=== PATIENT | female | born 1960 | race Caucasian/White ===

== ENCOUNTER 2017-05-30 18:35 | Inpatient (IN) | payer MEDICAID, OTHER ==
[~2017-05-30] VITALS: Ht 167.6 cm; Wt 98.5 kg
[2017-05-30] MEDS ORDERED: SODIUM CHLORIDE 0.9% 1,000 ML IV ONE (18:38)
[2017-05-30] MEDS ORDERED: SODIUM CHLORIDE 0.9% 1,000ML IVBOLUS ONE (19:00)
[2017-05-30] MEDS ORDERED: PLEASE ENTER ALLERGIES MC SCH (19:00)
[2017-05-30] MEDS ORDERED: SODIUM CHLORIDE FLUSH 10ML SYR IVF ONE (19:00)
[2017-05-30] MEDS ORDERED: PLEASE ENTER HEIGHT AND WEIGHT MC SCH (19:00)
[2017-05-30] MEDS ORDERED: INSULIN REGULAR 100 UNITS/ML, 3ML VIAL ONE (19:51)
[2017-05-30 19:52] LABS: AMPHETAMINE SCREEN, URINE Negative (Negative); BARBITURATE SCREEN, URINE Negative (Negative); BENZODIAZEPINE SCREEN, URINE Negative (Negative); CANNABINOID SCREEN, URINE Negative (Negative); COCAINE SCREEN, URINE Negative (Negative); METHADONE SCREEN, URINE Negative (Negative); OPIATE SCREEN, URINE Negative (Negative)
[2017-05-30 19:55] LABS: MICROSCOPIC INDICATED
[2017-05-30] MEDS ORDERED: INSULIN REGULAR 100 UNITS/ML, 3ML VIAL IV ONE (20:00)
[2017-05-30 20:19] LABS: CULTURE INDICATED? NO
[2017-05-30] MEDS ORDERED: ATOR20TA PO (20:25)
[2017-05-30] MEDS ORDERED: ALEN70TA5 PO (20:25)
[2017-05-30] MEDS ORDERED: CHOL500045 PO (20:25)
[2017-05-30] MEDS ORDERED: POTA20TA89 PO (20:25)
[2017-05-30] MEDS ORDERED: LORazepam 2 MG/ML, 1ML ONE (21:28)
[2017-05-30] MEDS ORDERED: LORazepam 2 MG/ML, 1ML IVPush ONE (21:30)
[2017-05-30 21:31] LABS: ALBUMIN 3.3 g/dL (3.4-5.0); ANION GAP 29 mmol/L (5-15); CALCIUM 8.3 mg/dL (8.5-10.1); CHLORIDE 109 mmol/L (98-107)
[2017-05-30 21:35] LABS: MEAN CORPUSCULAR HEMOGLOBIN 31.3 pg (27.0-34.8); MEAN CORPUSCULAR HGB CONC 33.2 g/dL (32.4-35.8); MEAN CORPUSCULAR VOLUME 94.4 fL (80-100); MEAN PLATELET VOLUME 10.4 fL (7.4-10.4); PLATELET COUNT 211 x10^3/uL (130-400); RED BLOOD COUNT 4.63 x10^6/uL (3.82-5.3); RED CELL DISTRIBUTION WIDTH 13.3 % (9.6-15.2)
[2017-05-30 21:39] LABS: ALANINE AMINOTRANSFERASE 17 U/L (12-78); ALKALINE PHOSPHATASE 160 U/L (45-117); BILIRUBIN,TOTAL 0.7 mg/dL (0.2-1.0); CREATININE 1.34 mg/dL (0.55-1.02)
[2017-05-30 21:40] LABS: TOTAL PROTEIN 6.8 g/dL (6.4-8.2); TROPONIN I 0.017 ng/mL (0.000-0.045)
[2017-05-30 21:41] LABS: INTERNATIONAL NORMALIZED RATIO 1.13 (0.93-1.1); PROTHROMBIN TIME 11.6 Seconds (9.6-11.5)
[2017-05-30 21:44] LABS: SALICYLATE LEVEL 4.3 mg/dL (2.8-20.0); T4 (THYROXINE) 9.3 mcg/dL (4.8-13.9)
[2017-05-30 21:52] LABS: BASOPHILS # (AUTO) 0.05 x10^3/uL (0-0.1); BASOPHILS % (AUTO) 0 % (0-1); EOSINOPHILS # (AUTO) 0.01 x10^3/uL (0-0.4); EOSINOPHILS % (AUTO) 0 % (1-7); LYMPHOCYTES # (AUTO) 2.66 x10^3/uL (1-3.4); LYMPHOCYTES % (AUTO) 11 % (22-44); MD SCAN; MONOCYTES # (AUTO) 2.08 x10^3/uL (0.2-0.8); MONOCYTES % (AUTO) 9 % (2-9); NEUTROPHILS % (AUTO) 80 % (42-75)
[2017-05-30 21:53] LABS: ACETAMINOPHEN < 2 mcg/mL (10-30); CREATINE KINASE, TOTAL 117 U/L (26-192); THYROID STIMULATING HORMONE 0.159 mIU/L (0.358-3.740)
[2017-05-30] MEDS ORDERED: SODIUM CHLORIDE FLUSH 10ML SYR IVF PRN (22:00)
[2017-05-30 22:04] LABS: ACETONE, SERUM Large (80mg/dL) mg/dL (Negative)
[2017-05-30] MEDS ORDERED: D5%-0.45% NACL 1,000 ML IV PRN (22:45)
[2017-05-30] MEDS ORDERED: DOCUSATE 100 MG CAPSULE PO PRN (23:00)
[2017-05-30] MEDS ORDERED: ACETAMINOPHEN 325 MG TABLET PO PRN (23:00)
[2017-05-30] MEDS ORDERED: hydrALAzine 20 MG/ML, 1ML IVPush PRN (23:00)
[2017-05-30] MEDS ORDERED: BISACODYL 10 MG SUPP PR PRN (23:00)
[2017-05-30] MEDS ORDERED: POLYETHYLENE GLYCOL 17 GM PACKET PO PRN (23:00)
[2017-05-30] MEDS ORDERED: ENALAPRILAT 1.25 MG/ML, 2ML IVPush PRN (23:00)
[2017-05-30] MEDS ORDERED: morphine SULFATE 10 MG/ML, 1ML IVPush PRN (23:00)
[2017-05-30 23:29] LABS: ANION GAP 20 mmol/L (5-15); CALCIUM 6.8 mg/dL (8.5-10.1); CHLORIDE 120 mmol/L (98-107); CREATININE 0.97 mg/dL (0.55-1.02)
[2017-05-30 23:40] LABS: FREE T4 (FREE THYROXINE) 1.17 ng/dL (0.76-1.46); THYROID STIMULATING HORMONE 0.127 mIU/L (0.358-3.740)
[2017-05-30 23:55] LABS: HEMOGLOBIN A1C 12.9 % (4.2-6.3)
[2017-05-31] MEDS: SODIUM CHLORIDE 0.9% 1,000 ML IV SCH ×2 (00:29→05:05)
[2017-05-31] MEDS ORDERED: POTASSIUM CHLORIDE 40 MEQ in SODIUM CHLORIDE 0.9% 100 ML IV ONE ×3 (00:30→09:00)
[2017-05-31] MEDS: REGULAR INSULIN 62.5 UNITS in SODIUM CHLORIDE 0.9% 249.375 ML IV PRN ×2 (00:30→18:04)
[2017-05-31] MEDS ORDERED: MAGNESIUM SULFATE PMX 2GM/50ML 50 ML IV ONE (00:30)
[2017-05-31] MEDS ORDERED: CEFTRIAXONE PMX 1GM/50ML 50 ML IV ONE (00:30)
[2017-05-31] MEDS: HEPARIN 5,000 UNITS/ML, 1ML SQ SCH ×4 (00:40→22:37)
[2017-05-31 04:14] LABS: BASOPHILS # (AUTO) 0.05 x10^3/uL (0-0.1); BASOPHILS % (AUTO) 0 % (0-1); EOSINOPHILS # (AUTO) 0.02 x10^3/uL (0-0.4); EOSINOPHILS % (AUTO) 0 % (1-7); LYMPHOCYTES # (AUTO) 2.48 x10^3/uL (1-3.4); LYMPHOCYTES % (AUTO) 17 % (22-44); MD NO; MEAN CORPUSCULAR HEMOGLOBIN 31.6 pg (27.0-34.8); MEAN CORPUSCULAR VOLUME 92.9 fL (80-100); MEAN PLATELET VOLUME 9.5 fL (7.4-10.4); MONOCYTES # (AUTO) 0.42 x10^3/uL (0.2-0.8); MONOCYTES % (AUTO) 3 % (2-9); NEUTROPHILS # (AUTO) 11.62 x10^3/uL (1.8-6.8); NEUTROPHILS % (AUTO) 80 % (42-75); PLATELET COUNT 137 x10^3/uL (130-400); RED BLOOD COUNT 4.36 x10^6/uL (3.82-5.3); RED CELL DISTRIBUTION WIDTH 12.9 % (9.6-15.2)
[2017-05-31 04:25] LABS: ALANINE AMINOTRANSFERASE 15 U/L (12-78); ALBUMIN 2.7 g/dL (3.4-5.0); ANION GAP 17 mmol/L (5-15); CHLORIDE 124 mmol/L (98-107); CREATININE 1.04 mg/dL (0.55-1.02)
[2017-05-31 04:28] LABS: ALKALINE PHOSPHATASE 140 U/L (45-117); BILIRUBIN,TOTAL 0.6 mg/dL (0.2-1.0); CHOL/HDL RATIO 2.1; CHOLESTEROL, TOTAL 70 mg/dL (140-239); HDL CHOL % 49 % (28-40); HDL CHOLESTEROL (DIRECT) 34 mg/dL (40-60); TOTAL PROTEIN 5.7 g/dL (6.4-8.2); TRIGLYCERIDES 159 mg/dL (50-200); VLDL CHOLESTEROL 32 mg/dL (0-25)
[2017-05-31 04:29] LABS: LDL CHOLESTEROL,CALCULATED < 5 mg/dL (54-169); LDL/HDL RATIO 0.1 (0.5-3.0)
[2017-05-31 04:30] VITALS: BP 125/65
[2017-05-31] MEDS ORDERED: POTASSIUM CHLORIDE 40 MEQ in SODIUM CHLORIDE 0.9% 500 ML IV ONE (07:00)
[2017-05-31] MEDS: CHOLECALCIFEROL 1,000 UNIT TABLET PO SCH (09:00)
[2017-05-31] MEDS: FAMOTIDINE 20 MG/2 ML IVPush SCH ×2 (09:36→22:37)
[2017-05-31 13:16] LABS: ANION GAP 13 mmol/L (5-15); CALCIUM 7.6 mg/dL (8.5-10.1); CHLORIDE 124 mmol/L (98-107)
[2017-05-31 13:18] LABS: CREATININE 1.12 mg/dL (0.55-1.02)
[2017-05-31] MEDS ORDERED: POTASSIUM CHLORIDE 20 MEQ TAB.ER.PRT ONE (13:53)
[2017-05-31] MEDS ORDERED: POTASSIUM CHLORIDE 20 MEQ TAB.ER.PRT PO SCH (14:00)
[2017-05-31 16:20] LABS: CALCIUM 7.7 mg/dL (8.5-10.1); CREATININE 1.08 mg/dL (0.55-1.02)
[2017-05-31 16:27] LABS: ANION GAP 15 mmol/L (5-15); CHLORIDE 123 mmol/L (98-107)
[2017-05-31] MEDS ORDERED: POTASSIUM CHLORIDE 20 MEQ TAB.ER.PRT PO ONE ×2 (18:00→22:00)
[2017-05-31] MEDS ORDERED: POTASSIUM CHLORIDE IV ONE (18:30)
[2017-05-31] MEDS ORDERED: NACL IV ONE (18:30)
[2017-05-31] MEDS ORDERED: D5 IV ONE (18:30)
[2017-05-31 20:54] LABS: ANION GAP 11 mmol/L (5-15); CALCIUM 7.9 mg/dL (8.5-10.1); CHLORIDE 124 mmol/L (98-107); CREATININE 1.12 mg/dL (0.55-1.02)
[2017-05-31] MEDS: ATORVASTATIN 20 MG TABLET PO SCH (22:37)
[2017-05-31] MEDS ORDERED: D5%-0.45% NACL 1,000 ML IV PRN (22:45)
[2017-06-01 00:41] LABS: ANION GAP 11 mmol/L (5-15); CALCIUM 7.7 mg/dL (8.5-10.1); CHLORIDE 126 mmol/L (98-107); CREATININE 1.01 mg/dL (0.55-1.02)
[2017-06-01] MEDS ORDERED: D5%-0.45% NACL 1,000 ML IV SCH (02:30)
[2017-06-01 04:00] VITALS: BP 118/51
[2017-06-01 04:37] LABS: MEAN CORPUSCULAR HEMOGLOBIN 30.8 pg (27.0-34.8); MEAN CORPUSCULAR HGB CONC 33.4 g/dL (32.4-35.8); MEAN CORPUSCULAR VOLUME 92.1 fL (80-100); RED CELL DISTRIBUTION WIDTH 13.4 % (9.6-15.2)
[2017-06-01 04:48] LABS: ALANINE AMINOTRANSFERASE 16 U/L (12-78); ALBUMIN 2.3 g/dL (3.4-5.0); ANION GAP 9 mmol/L (5-15); CALCIUM 7.5 mg/dL (8.5-10.1); CHLORIDE 126 mmol/L (98-107); CREATININE 0.99 mg/dL (0.55-1.02)
[2017-06-01 04:50] LABS: ALKALINE PHOSPHATASE 132 U/L (45-117); BILIRUBIN,TOTAL 0.5 mg/dL (0.2-1.0)
[2017-06-01 05:23] LABS: BASOPHILS # (AUTO) 0.02 x10^3/uL (0-0.1); BASOPHILS % (AUTO) 0 % (0-1); EOSINOPHILS # (AUTO) 0.03 x10^3/uL (0-0.4); EOSINOPHILS % (AUTO) 1 % (1-7); LYMPHOCYTES # (AUTO) 1.46 x10^3/uL (1-3.4); LYMPHOCYTES % (AUTO) 24 % (22-44); MD SCAN; MEAN PLATELET VOLUME 9.6 fL (7.4-10.4); MONOCYTES % (AUTO) 8 % (2-9); NEUTROPHILS # (AUTO) 3.97 x10^3/uL (1.8-6.8); NEUTROPHILS % (AUTO) 67 % (42-75); PLATELET COUNT 87 x10^3/uL (130-400)
[2017-06-01] MEDS ORDERED: POTASSIUM PHOSPHATE 88 MEQ in SODIUM CHLORIDE 0.9% 1,000 ML IV ONE (07:30)
[2017-06-01] MEDS: HEPARIN 5,000 UNITS/ML, 1ML SQ SCH ×3 (07:39→23:46)
[2017-06-01] MEDS: CHOLECALCIFEROL 1,000 UNIT TABLET PO SCH (07:59)
[2017-06-01] MEDS: FAMOTIDINE 20 MG/2 ML IVPush SCH ×2 (07:59→21:00)
[2017-06-01 08:29] LABS: ANION GAP 9 mmol/L (5-15); CALCIUM 7.8 mg/dL (8.5-10.1); CHLORIDE 126 mmol/L (98-107); CREATININE 0.98 mg/dL (0.55-1.02)
[2017-06-01] MEDS ORDERED: SODIUM BICARBONATE 8.4% 100 MEQ in DEXTROSE 5% 1,000 ML IV SCH (09:00)
[2017-06-01 12:45] LABS: CALCIUM 7.2 mg/dL (8.5-10.1); CHLORIDE 123 mmol/L (98-107)
[2017-06-01 12:49] LABS: ANION GAP 12 mmol/L (5-15); CREATININE 0.85 mg/dL (0.55-1.02)
[2017-06-01] MEDS: SODIUM BICARBONATE 8.4% 150 MEQ in DEXTROSE 5% 1,000 ML IV SCH ×2 (13:42→21:56)
[2017-06-01 13:48] LABS: HIT RESULT NEGATIVE (NEGATIVE)
[2017-06-01] MEDS ORDERED: POTASSIUM CHLORIDE 20 MEQ TAB.ER.PRT PO ONE (14:00)
[2017-06-01] MEDS: REGULAR INSULIN 62.5 UNITS in SODIUM CHLORIDE 0.9% 249.375 ML IV PRN (16:06)
[2017-06-01 17:56] LABS: ANION GAP 11 mmol/L (5-15); CALCIUM 6.8 mg/dL (8.5-10.1); CHLORIDE 121 mmol/L (98-107); CREATININE 0.77 mg/dL (0.55-1.02)
[2017-06-01] MEDS: ATORVASTATIN 20 MG TABLET PO SCH (21:00)
[2017-06-01 21:18] LABS: ANION GAP 10 mmol/L (5-15); CALCIUM 6.9 mg/dL (8.5-10.1); CHLORIDE 120 mmol/L (98-107); CREATININE 0.79 mg/dL (0.55-1.02)
[2017-06-02 02:41] LABS: ANION GAP 10 mmol/L (5-15); CALCIUM 6.6 mg/dL (8.5-10.1); CHLORIDE 118 mmol/L (98-107); CREATININE 0.75 mg/dL (0.55-1.02)
[2017-06-02 04:00] VITALS: BP 108/59
[2017-06-02] MEDS ORDERED: POTASSIUM CHLORIDE 40 MEQ in SODIUM CHLORIDE 0.9% 100 ML IV ONE (04:00)
[2017-06-02] MEDS: SODIUM BICARBONATE 8.4% 150 MEQ in DEXTROSE 5% 1,000 ML IV SCH (06:02)
[2017-06-02 06:14] LABS: CHLORIDE 113 mmol/L (98-107); MEAN CORPUSCULAR HEMOGLOBIN 31.9 pg (27.0-34.8); MEAN CORPUSCULAR HGB CONC 34.7 g/dL (32.4-35.8); MEAN CORPUSCULAR VOLUME 91.7 fL (80-100); MEAN PLATELET VOLUME 10.2 fL (7.4-10.4); PLATELET COUNT 81 x10^3/uL (130-400); RED BLOOD COUNT 3.64 x10^6/uL (3.82-5.3); RED CELL DISTRIBUTION WIDTH 13.2 % (9.6-15.2)
[2017-06-02 06:24] LABS: ALANINE AMINOTRANSFERASE 15 U/L (12-78); ALBUMIN 2.2 g/dL (3.4-5.0); ALKALINE PHOSPHATASE 125 U/L (45-117); ANION GAP 9 mmol/L (5-15); BILIRUBIN,TOTAL 0.7 mg/dL (0.2-1.0); CALCIUM 6.4 mg/dL (8.5-10.1); CREATININE 0.81 mg/dL (0.55-1.02); TOTAL PROTEIN 4.7 g/dL (6.4-8.2)
[2017-06-02] MEDS ORDERED: POTASSIUM PHOSPHATE 44 MEQ in SODIUM CHLORIDE 0.9% 500 ML IV ONE (06:30)
[2017-06-02 07:09] LABS: BASOPHILS # (AUTO) 0.02 x10^3/uL (0-0.1); BASOPHILS % (AUTO) 1 % (0-1); EOSINOPHILS # (AUTO) 0.06 x10^3/uL (0-0.4); EOSINOPHILS % (AUTO) 1 % (1-7); LYMPHOCYTES # (AUTO) 2.21 x10^3/uL (1-3.4); LYMPHOCYTES % (AUTO) 47 % (22-44); MD SCAN; MONOCYTES # (AUTO) 0.34 x10^3/uL (0.2-0.8); MONOCYTES % (AUTO) 7 % (2-9); NEUTROPHILS # (AUTO) 2.06 x10^3/uL (1.8-6.8); NEUTROPHILS % (AUTO) 44 % (42-75)
[2017-06-02] MEDS ORDERED: D5%-0.45NACL+KCL 40MEQ 1,000 ML IV SCH (08:00)
[2017-06-02] MEDS ORDERED: MAGNESIUM SULFATE PMX 2GM/50ML 50 ML IV ONE (08:00)
[2017-06-02] MEDS: CHOLECALCIFEROL 1,000 UNIT TABLET PO SCH (09:00)
[2017-06-02] MEDS: HEPARIN 5,000 UNITS/ML, 1ML SQ SCH ×3 (09:32→22:57)
[2017-06-02] MEDS: FAMOTIDINE 20 MG/2 ML IVPush SCH (09:32)
[2017-06-02] MEDS: ONDANSETRON 2MG/ML, 2ML IVPush PRN ×2 (10:11→17:04)
[2017-06-02 11:26] LABS: ANION GAP 9 mmol/L (5-15); CALCIUM 6.7 mg/dL (8.5-10.1); CHLORIDE 114 mmol/L (98-107); CREATININE 0.81 mg/dL (0.55-1.02)
[2017-06-02] MEDS ORDERED: NYSTATIN CRM 15GM TP SCH (11:30)
[2017-06-02] MEDS ORDERED: POTASSIUM CHLORIDE 20 MEQ TAB.ER.PRT PO ONE (11:30)
[2017-06-02 14:27] LABS: ANION GAP 9 mmol/L (5-15); CALCIUM 6.5 mg/dL (8.5-10.1); CHLORIDE 115 mmol/L (98-107); CREATININE 0.79 mg/dL (0.55-1.02)
[2017-06-02] MEDS: POTASSIUM CHLORIDE 20 MEQ in SODIUM CHLORIDE 0.45% 1,000 ML IV SCH (15:44)
[2017-06-02] MEDS: INSULIN LISPRO 100 UNITS/ML, PEN SQ-INSULIN SCH ×2 (16:21→21:24)
[2017-06-02] MEDS: OXYcodone IR 5MG TABLET PO PRN (16:57)
[2017-06-02 19:18] VITALS: BP 105/69
[2017-06-02] MEDS: ATORVASTATIN 20 MG TABLET PO SCH (21:24)
[2017-06-02] MEDS: INSULIN GLARGINE 100 UNITS/ML, PEN SQ-INSULIN SCH (21:39)
[2017-06-02] MEDS ORDERED: REGULAR INSULIN 62.5 UNITS in SODIUM CHLORIDE 0.9% 249.375 ML IV PRN (22:45)
[2017-06-03] MEDS: POTASSIUM CHLORIDE 20 MEQ in SODIUM CHLORIDE 0.45% 1,000 ML IV SCH ×3 (01:09→21:18)
[2017-06-03 02:55] VITALS: BP 98/62
[2017-06-03] MEDS: ONDANSETRON 2MG/ML, 2ML IVPush PRN ×2 (03:46→21:07)
[2017-06-03 04:45] LABS: ANION GAP 8 mmol/L (5-15); CALCIUM 6.3 mg/dL (8.5-10.1); CHLORIDE 113 mmol/L (98-107)
[2017-06-03 06:59] VITALS: BP 124/83
[2017-06-03] MEDS: HEPARIN 5,000 UNITS/ML, 1ML SQ SCH ×3 (07:55→22:47)
[2017-06-03] MEDS: CHOLECALCIFEROL 1,000 UNIT TABLET PO SCH (07:56)
[2017-06-03] MEDS: INSULIN LISPRO 100 UNITS/ML, PEN SQ-INSULIN SCH ×4 (08:07→21:08)
[2017-06-03] MEDS: INSULIN GLARGINE 100 UNITS/ML, PEN SQ-INSULIN SCH ×2 (08:07→21:08)
[2017-06-03] MEDS ORDERED: SODIUM PHOSPHATE 20 MMOL in SODIUM CHLORIDE 0.9% 500 ML IV ONE (08:30)
[2017-06-03 12:59] VITALS: BP 127/84
[2017-06-03 20:01] VITALS: BP 99/65
[2017-06-03] MEDS: ATORVASTATIN 20 MG TABLET PO SCH (21:07)
[2017-06-03] MEDS: OXYcodone IR 5MG TABLET PO PRN (21:07)
[2017-06-04] MEDS: OXYcodone IR 5MG TABLET PO PRN (02:42)
[2017-06-04 03:53] VITALS: BP 99/65
[2017-06-04 04:17] LABS: MEAN CORPUSCULAR HEMOGLOBIN 31.6 pg (27.0-34.8); MEAN CORPUSCULAR HGB CONC 34.1 g/dL (32.4-35.8); MEAN CORPUSCULAR VOLUME 92.5 fL (80-100); PLATELET COUNT 95 x10^3/uL (130-400); RED BLOOD COUNT 3.71 x10^6/uL (3.82-5.3); RED CELL DISTRIBUTION WIDTH 13.8 % (9.6-15.2)
[2017-06-04 04:28] LABS: ANION GAP 6 mmol/L (5-15); CHLORIDE 113 mmol/L (98-107); CREATININE 0.72 mg/dL (0.55-1.02)
[2017-06-04 05:41] LABS: BASOPHILS # (AUTO) 0.03 x10^3/uL (0-0.1); BASOPHILS % (AUTO) 1 % (0-1); EOSINOPHILS # (AUTO) 0.09 x10^3/uL (0-0.4); EOSINOPHILS % (AUTO) 2 % (1-7); LYMPHOCYTES # (AUTO) 2.56 x10^3/uL (1-3.4); LYMPHOCYTES % (AUTO) 47 % (22-44); MD SCAN; MONOCYTES # (AUTO) 0.54 x10^3/uL (0.2-0.8); MONOCYTES % (AUTO) 10 % (2-9); NEUTROPHILS # (AUTO) 2.18 x10^3/uL (1.8-6.8); NEUTROPHILS % (AUTO) 40 % (42-75)
[2017-06-04] MEDS: POTASSIUM CHLORIDE 20 MEQ in SODIUM CHLORIDE 0.45% 1,000 ML IV SCH ×2 (06:13→17:43)
[2017-06-04 07:30] VITALS: BP 118/68
[2017-06-04] MEDS: INSULIN LISPRO 100 UNITS/ML, PEN SQ-INSULIN SCH ×4 (07:31→20:14)
[2017-06-04] MEDS: HEPARIN 5,000 UNITS/ML, 1ML SQ SCH ×3 (07:32→22:32)
[2017-06-04] MEDS: INSULIN GLARGINE 100 UNITS/ML, PEN SQ-INSULIN SCH ×2 (09:47→20:19)
[2017-06-04] MEDS: CALCIUM CARBONATE 500 MG TAB.CHEW PO SCH ×2 (09:48→20:10)
[2017-06-04] MEDS: CHOLECALCIFEROL 1,000 UNIT TABLET PO SCH (09:48)
[2017-06-04 14:05] VITALS: BP 116/76
[2017-06-04] MEDS: ONDANSETRON 2MG/ML, 2ML IVPush PRN ×2 (15:37→22:32)
[2017-06-04 19:52] VITALS: BP 116/78
[2017-06-04] MEDS: ATORVASTATIN 20 MG TABLET PO SCH (20:10)
[2017-06-04] MEDS ORDERED: DIPHENHYDRAMINE 25 MG CAPSULE PO ONE (23:00)
[2017-06-05 01:28] VITALS: BP 105/70
[2017-06-05] MEDS: POTASSIUM CHLORIDE 20 MEQ in SODIUM CHLORIDE 0.45% 1,000 ML IV SCH ×2 (03:00→18:09)
[2017-06-05] MEDS: INSULIN LISPRO 100 UNITS/ML, PEN SQ-INSULIN SCH ×4 (07:36→20:42)
[2017-06-05 07:57] VITALS: BP 148/77
[2017-06-05] MEDS: CALCIUM CARBONATE 500 MG TAB.CHEW PO SCH ×2 (09:47→20:42)
[2017-06-05] MEDS: CHOLECALCIFEROL 1,000 UNIT TABLET PO SCH (09:59)
[2017-06-05] MEDS: HEPARIN 5,000 UNITS/ML, 1ML SQ SCH ×2 (10:00→18:09)
[2017-06-05] MEDS: INSULIN GLARGINE 100 UNITS/ML, PEN SQ-INSULIN SCH ×2 (10:00→21:00)
[2017-06-05 15:15] VITALS: BP 144/84
[2017-06-05] MEDS: METOCLOPRAMIDE 10MG TABLET PO SCH ×2 (16:32→20:42)
[2017-06-05] MEDS: ATORVASTATIN 20 MG TABLET PO SCH (20:42)
[2017-06-05 21:02] VITALS: BP 132/76
[2017-06-06 01:51] VITALS: BP 132/84
[2017-06-06] MEDS: HEPARIN 5,000 UNITS/ML, 1ML SQ SCH ×3 (02:27→17:11)
[2017-06-06] MEDS: POTASSIUM CHLORIDE 20 MEQ in SODIUM CHLORIDE 0.45% 1,000 ML IV SCH ×2 (03:37→15:04)
[2017-06-06 05:14] LABS: ANION GAP 7 mmol/L (5-15); CALCIUM 7.9 mg/dL (8.5-10.1); CHLORIDE 109 mmol/L (98-107); CREATININE 0.76 mg/dL (0.55-1.02)
[2017-06-06] MEDS: METOCLOPRAMIDE 10MG TABLET PO SCH ×4 (06:42→21:01)
[2017-06-06] MEDS: INSULIN LISPRO 100 UNITS/ML, PEN SQ-INSULIN SCH ×4 (07:10→21:00)
[2017-06-06 07:56] VITALS: BP 116/78
[2017-06-06] MEDS: CALCIUM CARBONATE 500 MG TAB.CHEW PO SCH ×2 (08:50→21:00)
[2017-06-06] MEDS: INSULIN GLARGINE 100 UNITS/ML, PEN SQ-INSULIN SCH ×2 (08:57→21:01)
[2017-06-06] MEDS: CHOLECALCIFEROL 1,000 UNIT TABLET PO SCH (08:57)
[2017-06-06 13:36] VITALS: BP 130/76
[2017-06-06 19:49] VITALS: BP 123/79
[2017-06-06] MEDS: ATORVASTATIN 20 MG TABLET PO SCH (21:00)
[2017-06-06] MEDS: OXYcodone IR 5MG TABLET PO PRN (23:33)
[2017-06-07] MEDS: POTASSIUM CHLORIDE 20 MEQ in SODIUM CHLORIDE 0.45% 1,000 ML IV SCH (01:00)
[2017-06-07 01:02] VITALS: BP 121/71
[2017-06-07] MEDS: HEPARIN 5,000 UNITS/ML, 1ML SQ SCH ×2 (02:28→09:33)
[2017-06-07 03:18] LABS: BASOPHILS # (AUTO) 0.02 x10^3/uL (0-0.1); BASOPHILS % (AUTO) 0 % (0-1); EOSINOPHILS # (AUTO) 0.14 x10^3/uL (0-0.4); EOSINOPHILS % (AUTO) 2 % (1-7); LYMPHOCYTES # (AUTO) 3.29 x10^3/uL (1-3.4); LYMPHOCYTES % (AUTO) 43 % (22-44); MD NO; MEAN CORPUSCULAR HEMOGLOBIN 31.7 pg (27.0-34.8); MEAN CORPUSCULAR HGB CONC 33.6 g/dL (32.4-35.8); MEAN CORPUSCULAR VOLUME 94.3 fL (80-100); MEAN PLATELET VOLUME 9.3 fL (7.4-10.4); MONOCYTES # (AUTO) 0.75 x10^3/uL (0.2-0.8); MONOCYTES % (AUTO) 10 % (2-9); NEUTROPHILS # (AUTO) 3.53 x10^3/uL (1.8-6.8); NEUTROPHILS % (AUTO) 46 % (42-75); PLATELET COUNT 168 x10^3/uL (130-400); RED BLOOD COUNT 3.99 x10^6/uL (3.82-5.3); RED CELL DISTRIBUTION WIDTH 13.9 % (9.6-15.2)
[2017-06-07 03:35] LABS: ALANINE AMINOTRANSFERASE 19 U/L (12-78); ALBUMIN 2.4 g/dL (3.4-5.0); ALKALINE PHOSPHATASE 171 U/L (45-117); BILIRUBIN,TOTAL 0.6 mg/dL (0.2-1.0); CREATININE 0.88 mg/dL (0.55-1.02); TOTAL PROTEIN 5.4 g/dL (6.4-8.2)
[2017-06-07 03:38] LABS: ANION GAP 10 mmol/L (5-15); CHLORIDE 108 mmol/L (98-107)
[2017-06-07] MEDS: METOCLOPRAMIDE 10MG TABLET PO SCH ×3 (06:30→16:29)
[2017-06-07] MEDS: INSULIN LISPRO 100 UNITS/ML, PEN SQ-INSULIN SCH ×3 (07:00→16:00)
[2017-06-07 07:06] VITALS: BP 129/64
[2017-06-07] MEDS: CHOLECALCIFEROL 1,000 UNIT TABLET PO SCH (09:00)
[2017-06-07] MEDS: CALCIUM CARBONATE 500 MG TAB.CHEW PO SCH (09:32)
[2017-06-07] MEDS: INSULIN GLARGINE 100 UNITS/ML, PEN SQ-INSULIN SCH (09:34)
[2017-06-07 12:23] VITALS: BP 131/69
[2017-06-07] MEDS ORDERED: POTASSIUM CHLORIDE 20 MEQ TAB.ER.PRT PO ONE (13:00)
[2017-06-07] MEDS ORDERED: METO10TA2 PO (13:08)
[2017-06-07] MEDS ORDERED: INSU100I13 SQ-INSULIN (13:08)
== END 2017-06-07 18:15 | disposition home health service (06) | DRG 637 ==
LOC: ED 19:46 → EDIP 21:53 → CCU 23:38 → 3NW 06-02 17:00
PROVIDERS: ADMIT Internal Medicine; ATTEND Internal Medicine
PROC: 02HV33Z Insertion of Infusion Device into Superior Vena Cava, Percutaneous Approach (ICD-10-PCS; principal; 2017-05-30)
PROC: 0T9B70Z Drainage of Bladder with Drainage Device, Via Natural or Artificial Opening (ICD-10-PCS; 2017-05-30)
DX: E11.11 Type 2 diabetes mellitus with ketoacidosis with coma (principal); G93.41 Metabolic encephalopathy; N17.0 Acute kidney failure with tubular necrosis; E44.0 Moderate protein-calorie malnutrition; K31.84 Gastroparesis; E11.43 Type 2 diabetes mellitus with diabetic autonomic (poly)neuropathy; D69.6 Thrombocytopenia, unspecified; E11.649 Type 2 diabetes mellitus with hypoglycemia without coma; E83.39 Other disorders of phosphorus metabolism; E83.42 Hypomagnesemia; D72.823 Leukemoid reaction; E78.5 Hyperlipidemia, unspecified; E83.51 Hypocalcemia; E86.0 Dehydration; E87.6 Hypokalemia; E87.8 Other disorders of electrolyte and fluid balance, not elsewhere classified; M81.0 Age-related osteoporosis without current pathological fracture; R32 Unspecified urinary incontinence; Z88.0 Allergy status to penicillin
CPT/HCPCS: 36415; 36569; 36600; 51702; 70450; 71045; 74018; 78264; 80048; 80053; 80061; 80307; 80329; 81001; 82010; 82140; 82306; 82330; 82533; 82550; 82803; 82962; 83036; 83605; 83735; 83970; 84100; 84436; 84439; 84443; 84484; 85025; 85610; 85730; 86022; 87040; 87081; 93005; 93306; 96361; 96374; 96375; J0696; J1644; J1815; J2405; J3480; J7070; A9541; C9898; G0480; J2060; J3475; J7030; J7040; J7050; Q0163; S0028

== ENCOUNTER 2019-12-07 02:28 | Emergency (ER) | payer MEDICAID ==
[~2019-12-07] VITALS: Ht 152.4 cm; Wt 76.4 kg
[~2019-12-07 02:28] MED LIST: ALEN70TA6 PO; ATOR20TA PO; CHOL500045 PO; INSU100I13 SQ-INSULIN; METO10TA2 PO; POTA20TA89 PO
--- NOTE | 2019-12-07 03:05 | NUR ---
PT PROVIDED APPLE JUICE, TOLERATED WELL.
[2019-12-07 03:07] LABS: BASOPHILS # (AUTO) 0.03 x10^3/uL (0-0.1); BASOPHILS % (AUTO) 0 % (0-1); EOSINOPHILS # (AUTO) 0.07 x10^3/uL (0-0.4); EOSINOPHILS % (AUTO) 1 % (1-7); LYMPHOCYTES # (AUTO) 1.77 x10^3/uL (1-3.4); LYMPHOCYTES % (AUTO) 18 % (22-44); MD NO; MEAN CORPUSCULAR HEMOGLOBIN 30.9 pg (27.0-34.8); MEAN CORPUSCULAR HGB CONC 32.8 g/dL (32.4-35.8); MEAN CORPUSCULAR VOLUME 94.2 fL (80-100); MEAN PLATELET VOLUME 7.9 fL (7.4-10.4); MONOCYTES # (AUTO) 0.46 x10^3/uL (0.2-0.8); MONOCYTES % (AUTO) 5 % (2-9); NEUTROPHILS # (AUTO) 7.28 x10^3/uL (1.8-6.8); NEUTROPHILS % (AUTO) 76 % (42-75); PLATELET COUNT 211 x10^3/uL (130-400); RED BLOOD COUNT 4.43 x10^6/uL (3.82-5.3); RED CELL DISTRIBUTION WIDTH 14.8 % (9.6-15.2)
[2019-12-07 03:16] LABS: ANION GAP 6 mmol/L (5-15); CALCIUM 9.4 mg/dL (8.5-10.1); CHLORIDE 112 mmol/L (98-107); CREATININE 0.95 mg/dL (0.55-1.02)
--- NOTE | 2019-12-07 04:15 | NUR ---
PT CONSUMED SANDWICH, CRACKERS AND JUICE. TOLERATED WELL. UPDATED ON POC.
[2019-12-07 05:43] VITALS: BP 119/59
== END 2019-12-07 05:58 | disposition home or self-care (01) ==
LOC: ED 02:58
DX: E11.649 Type 2 diabetes mellitus with hypoglycemia without coma (principal); Z79.4 Long term (current) use of insulin; Z87.891 Personal history of nicotine dependence
CPT/HCPCS: 80048; 82040; 82962; 85025; 99283